=== PATIENT | female | born 1995 | race Two or more races ===

== ENCOUNTER 2020-06-20 10:19 | Emergency (ER) | payer SELFPAY ==
[~2020-06-20] VITALS: Ht 160 cm; Wt 68.0 kg
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
[2020-06-20 10:59] LABS: BASO # 0.1 x10^3/uL (0.0-0.2); BASO % 1 % (0-3); EOS # 0.1 x10^3/uL (0.0-0.7); EOS % 1 % (0-3); HEMATOCRIT 38.4 % (36.0-47.0); HEMOGLOBIN 13.3 g/dL (12.0-15.5); LYMPH # 2.3 x10^3/uL (1.0-4.8); LYMPH % 30 % (24-48); MEAN CORPUSCULAR HEMOGLOBIN 30 pg (25-35); MEAN CORPUSCULAR HGB CONC 35 g/dL (31-37); MEAN CORPUSCULAR VOLUME 86 fL (79-100); MONO # 0.6 x10^3/uL (0.0-1.1); MONO % 8 % (0-9); NEUT # 4.6 x10^3/uL (1.8-7.7); NEUT % 60 % (31-73); PLATELET COUNT 227 x10^3/uL (140-400); RED BLOOD COUNT 4.49 x10^6/uL (3.50-5.40); RED CELL DISTRIBUTION WIDTH 13.5 % (11.5-14.5); WHITE BLOOD COUNT 7.7 x10^3/uL (4.0-11.0)
[2020-06-20] MEDS ORDERED: ACETAMINOPHEN 325 MG TABLET. PO ONE (11:00)
[2020-06-20 11:04] LABS: CALCIUM 8.9 mg/dL (8.5-10.1); CREATININE 0.5 mg/dL (0.6-1.0); GFR 149.1
[2020-06-20 11:09] LABS: BILIRUBIN,URINE NEGATIVE (NEG); CLARITY,URINE CLEAR; COLOR,URINE YELLOW; NITRITE,URINE NEGATIVE (NEG); PROTEIN,URINE NEGATIVE (NEG-TRACE); UROBILINOGEN,URINE 0.2 mg/dL (0.2 mg/dL)
[2020-06-20 11:10] LABS: ALBUMIN 3.5 g/dL (3.4-5.0); MAGNESIUM 1.9 mg/dL (1.8-2.4); TOTAL BILIRUBIN 0.6 mg/dL (0.2-1.0)
[2020-06-20 11:17] LABS: BACTERIA,URINE FEW /HPF (0-FEW); RBC,URINE OCC /HPF (0-2); WBC,URINE OCC /HPF (0-4)
[2020-06-20 12:33] VITALS: BP 119/62
--- NOTE | 2020-06-20 13:04 | RAD ---
Examination: US PRE HYSTEROSALPINGOGRAM History: abdominal pain in Comparison/Correlation: None Findings: OB ultrasound exam was performed. Maternal uterine cervix is closed with a length of 3.3 cm. Myometrium is unremarkable. Intrauterine gestation is present with crown-rump length of 3.5 cm corresponding to 10 weeks 2 days. heart rate is 165 beats per minute. Ultrasound EDC is 01/14/2021. No sac identified. No subchori onic hemorrhage. Right ovary measures 4.5 cm x 2.2 cm x 1.8 therapy left ovary measures 2.7 cm x 1.47 x 1.77. No adnex al masses or pelvic free fluid. Impression: Single living intrauterine gestation corresponding to 10 weeks 2 days. Electronically signed by: Contreras Alvarez MD (06/20/2020 1:01 PM) [id number]
== END 2020-06-20 13:22 | disposition home or self-care (01) ==
LOC: ER 10:19
DX: O26.891 Other specified pregnancy related conditions, first trimester (principal); R10.11 Right upper quadrant pain; G44.209 Tension-type headache, unspecified, not intractable; Z3A.10 10 weeks gestation of pregnancy
CPT/HCPCS: 36415; 76801; 80053; 81001; 81025; 83690; 83735; 85025; 99284